=== PATIENT | female | born 1990 | race Caucasian/White ===

== ENCOUNTER 2020-01-09 20:32 | Outpatient (REF) | payer MEDICAID, SELFPAY ==
[2020-01-09 20:04] LABS: Abs Immature Grans 0.03 k/cumm (0.0-0.09); Absolute Basophil Count 0.03 k/cumm (0.0-0.2); Absolute Eosinophil Count 0.14 k/cumm (0.0-0.7); Absolute Lymphocyte Count 2.73 k/cumm (1.2-3.4); Absolute Monocyte Count 0.52 k/cumm (0.11-0.7); Absolute Neutrophil Count 5.48 k/cumm (1.2-6.7); Basophils % 0.3; Eosinophils % 1.6; HCT 42.5 % (36.0-46.0); HGB 13.2 g/dL (12.0-15.5); Immature Grans % 0.3 %; Lymphocytes % 30.6; Mean Corp. HGB Concentration 31.1 g/dL (32.0-36.0); Mean Corpuscular Hemoglobin 26.6 pg (27.0-33.0); Mean Corpuscular Volume 85.5 fL (80-95); Mean Platelet Volume 12.3 fL (8.0-11.0); Monocytes % 5.8; Neutrophils % 61.4; Platelet Count 265 x1000/uL (130-400); RBC 4.97 m/cumm (4.00-5.20); RBC Distribution Width 16.6 % (11.7-14.6); White Blood Cell Count 8.93 k/cumm (4.4-10.8)
[2020-01-09 20:16] LABS: ALT 67 U/L (14-59); AST 17 U/L (15-37); Albumin 3.8 g/dL (3.4-5.0); Alkaline Phosphatase 94 U/L (46-116); Anion Gap 9.6 mmol/L (3-11); BUN 17 mg/dL (7-18); Bilirubin, Total 0.3 mg/dL (0.2-1.0); CO2 24.4 mmol/L (21.0-32.0); CREATININE 0.95 mg/dL (0.55-1.02); Calcium 9.2 mg/dL (8.5-10.1); Chloride 105 mmol/L (98-107); Glucose 95 mg/dL (74-106); Lipase 223 U/L (73-393); Potassium 4.4 mmol/L (3.5-5.1); Sodium 139 mmol/L (136-145); Total Protein 7.4 g/dL (6.4-8.2)
[2020-01-09 20:20] LABS: Hemoglobin A1C 5.4 % (3.8-5.6)
== END 2020-01-09 20:52 ==
LOC: NCHCN 20:32
PROVIDERS: PCP Nurse Practitioner Family; Visit Provider Registered Nurse
DX: I10 Essential (primary) hypertension (principal); R10.9 Unspecified abdominal pain
CPT/HCPCS: 80053; 83690; 83036; 85025

== ENCOUNTER 2020-04-01 14:01 | Outpatient (REF) | payer MEDICAID, SELFPAY ==
[2020-04-01 20:19] LABS: TSH (W/Ref FT4) 2.79 uIU/mL (0.36-3.74)
== END 2020-04-01 14:21 ==
LOC: NCHCN 14:01
PROVIDERS: PCP Nurse Practitioner Family; Visit Provider Registered Nurse
DX: E03.9 Hypothyroidism, unspecified (principal)
CPT/HCPCS: 84443

== ENCOUNTER 2020-05-27 14:56 | Outpatient (REF) | payer MEDICAID, SELFPAY ==
[2020-05-27 22:12] LABS: Calculated LDL 116 mg/dL (<100); Cholesterol 194 mg/dL (<200); HDL Cholesterol 37 mg/dL (40-60); TSH 4.11 uIU/mL (0.36-3.74); Triglyceride 209 mg/dL (<150)
== END 2020-05-27 15:16 ==
LOC: NCHCN 14:56
PROVIDERS: PCP Nurse Practitioner Family; Visit Provider Registered Nurse
DX: E03.9 Hypothyroidism, unspecified (principal); Z68.42 Body mass index [BMI] 45.0-49.9, adult
CPT/HCPCS: 80061; 84443

== ENCOUNTER 2020-10-23 15:15 | Outpatient (REF) | payer MEDICAID, SELFPAY | END 2020-10-23 15:16 | disposition home or self-care (01) | LOC: NCHCN 15:15 | PROVIDERS: PCP Nurse Practitioner Family; Visit Provider Registered Nurse | DX: R82.998 Other abnormal findings in urine (principal); M54.5 Low back pain | CPT/HCPCS: 87086 ==

== ENCOUNTER 2021-01-01 16:02 | Outpatient (REF) | payer MEDICAID, SELFPAY ==
[2021-01-01 14:16] LABS: Anion Gap 15.6 mmol/L (3-11); BUN 11 mg/dL (7-18); CO2 19.4 mmol/L (21.0-32.0); CREATININE 0.7 mg/dL (0.55-1.02); Calcium 9.2 mg/dL (8.5-10.1); Chloride 107 mmol/L (98-107); Glucose 143 mg/dL (74-106); Potassium 4.5 mmol/L (3.5-5.1); Sodium 142 mmol/L (136-145)
== END 2021-01-01 16:03 | disposition home or self-care (01) ==
LOC: NCHCN 16:02
PROVIDERS: PCP Nurse Practitioner Family; Visit Provider Registered Nurse
DX: I10 Essential (primary) hypertension (principal)
CPT/HCPCS: 80048

== ENCOUNTER 2021-03-23 12:22 | Outpatient (REF) | payer MEDICAID, SELFPAY ==
[2021-03-23 21:13] LABS: TSH 0.56 uIU/mL (0.36-3.74)
== END 2021-03-23 12:23 | disposition home or self-care (01) ==
LOC: NCHCN 12:22
PROVIDERS: PCP Nurse Practitioner Family; Visit Provider Registered Nurse
DX: E03.9 Hypothyroidism, unspecified (principal)
CPT/HCPCS: 84443

== ENCOUNTER 2021-11-12 14:52 | Outpatient (REF) | payer MEDICAID, SELFPAY ==
--- NOTE | 2021-11-12 14:30 | PAPFT_PTH ---
PATIENT: Polina Workman LOC: [facility] U#:[id number] AGE/SX: 31/F ROOM: RE11/12/[address]: Janene Singer : 1990 BED: DIS: 11/12/2021 SPEC #: [id number] RECD: 11/15/21 12:38 STATUS: FERNANDO REFifi #: [id number] KALEN: 11/12/21 14:[address]: Janene Singer [facility] Cytology RECD BY: Vaishnavi Tian ENTERED: 11/15/21 12:38 SP TYPE: PAPFT NELI DR: Rosanna Ashby Tissues: 1 - CX/ENDOCX FOR PAP SMEARS Procedures: PAP THIN PREP/[facility] Screening HPV DNA PROBE Comments: [id number]
--- OUTSIDE RECORDS SUMMARY | 2021-11-12 14:57 | XMS_ITS | CCD ---
:1990 Author Care Team Providers Name Role Phone MD SVETLANA Attending Physician Unavailable MD DEMOND Er Physician 1 Unavailable Vital Signs Unknown or Not Available. Allergies Allergy Code Allergy Type Reaction Status PENICILLINS (CLASS) 0 Drug allergy Anaphylaxis Active PERCOCET 93984 Drug allergy NAUSEA/VOMITING Active Procedures Unknown or Not Available. History of Immunizations Unknown or Not Available. Problems Unknown or Not Available. Results Unknown or Not Available. Active Medications Unknown or Not Available. Medications Administered During Visit Unknown or Not Available. Encounters Encounter Diagnosis Diagnosis Code Start Date Acute nasopharyngitis [common cold] J00 02/05 Social History Smoking Status Code Start Date End Date Never smoker [id number] Patient Decision Aids Unknown or Not Available. Discharge Instructions You were admitted to [facility] on 02/27/2021 07:49 with a principal diagnosis of Acute nasopharyngitis [comm on cold] You were discharged from [facility] on 02/27/2021 08:57 Should you have any questions prior to d ischarge, please contact a member of your healthcare team. If you have left the ho spital and have any questions, please contact your primary care physician. Chief Complaint and Reason For Visit Chief Complaint Date of Onset RUNNY NOSE/ NOT FEELING GOOD Function Status Unknown or Not Available. Plan of Care Unknown or Not Available. Referral/Transition of Care Unknown or Not Available.
--- OUTSIDE RECORDS SUMMARY | 2021-11-12 14:57 | XMS_ITS | CCD ---
:1990 Author Care Team Providers Name Role Phone LOLITA BALLESTEROS Attending Physician Unavailable Vital Signs Unknown or Not Available. Allergies Allergy Code Allergy Type Reaction Status PENICILLINS (CLASS) 0 Drug allergy Anaphylaxis Active PERCOCET 54788 Drug allergy NAUSEA/VOMITING Active Procedures Unknown or Not Available. History of Immunizations Unknown or Not Available. Problems Unknown or Not Available. Results HCG QUANTITATIVE WHOLE MOLECULE - [facility] Date/Time: 01/19/2021 09:14 Test Name Code Test Result Test Units Test Ref Range HCG, total+Beta 35858-5 <1 N/A subs Active Medications Unknown or Not Available. Medications Administered During Visit Unknown or Not Available. Encounters Encounter Diagnosis Diagnosis Code Start Date Amenorrhea, unspecified N912 01/19/2021 Social History Smoking Status Code Start Date End Date Never smoker [id number] Patient Decision Aids Unknown or Not Available. Discharge Instructions You were admitted to [facility] 01 on 01/19/2021 08:06 with a principal diagnosis of Amenorrhea, unspecified You had the following tests done: HCG QUANTITATIVE WHOLE MOLECULE You were discharged from [facility] 01 on 01/19/2021 08:06 Should you have any questions prior to d ischarge, please contact a member of your healthcare team. If you have left the spital and have any questions, please contact your primary care physician. Chief Complaint and Reason For Visit Unknown or Not Available. Function Status Unknown or Not Available. Plan of Care Unknown or Not Available. Referral/Transition of Care Unknown or Not Available.
== END 2021-11-12 14:53 | disposition home or self-care (01) ==
LOC: NCHCN 14:52
PROVIDERS: PCP Nurse Practitioner Family; Visit Provider Registered Nurse
DX: Z12.4 Encounter for screening for malignant neoplasm of cervix (principal); Z11.51 Encounter for screening for human papillomavirus (HPV)
CPT/HCPCS: 88142; 87624

== ENCOUNTER 2021-12-14 19:09 | Outpatient (REF) | payer MEDICAID, SELFPAY ==
[2021-12-14 21:23] LABS: HCT 41.7 % (36.0-46.0); HGB 12.8 g/dL (11.2-15.7); MCH 26.7 pg (27.0-33.0); MCHC 30.7 % (32.0-36.0); MCV 87 fL (80-95); MPV 12.7 fL (8.0-11.0); Platelet Count 246 10^3/uL (130-400); RDW 14.9 % (11.7-14.6); RDW-SD 47.8 fL; WBC 8.19 10^3/uL (4.4-10.8)
[2021-12-14 21:33] LABS: Hemoglobin A1C 7.1 % (<5.7)
[2021-12-14 21:45] LABS: ALT 161 U/L (14-59); AST 132 U/L (15-37); Albumin 3.6 g/dL (3.4-5.0); Alkaline Phosphatase 96 U/L (46-116); Anion Gap 8.2 mmol/L (3-11); BUN 8 mg/dL (7-18); Bilirubin, Total 0.2 mg/dL (0.2-1.0); CO2 27.8 mmol/L (21.0-32.0); CREATININE 0.7 mg/dL (0.55-1.02); Calculated LDL 86 mg/dL (<100); Chloride 107 mmol/L (98-107); Cholesterol 162 mg/dL (<200); Glucose 145 mg/dL (74-106); HDL Cholesterol 33 mg/dL (40-60); Potassium 4.4 mmol/L (3.5-5.1); Sodium 143 mmol/L (136-145); TSH 0.93 uIU/mL (0.36-3.74); Total Protein 7.6 g/dL (6.4-8.2); Triglyceride 215 mg/dL (<150)
== END 2021-12-14 19:10 | disposition home or self-care (01) ==
LOC: NCHCN 19:09
PROVIDERS: PCP Nurse Practitioner Family; Visit Provider Registered Nurse
DX: E03.9 Hypothyroidism, unspecified (principal); N93.8 Other specified abnormal uterine and vaginal bleeding; R10.9 Unspecified abdominal pain; Z13.220 Encounter for screening for lipoid disorders; I10 Essential (primary) hypertension; Z13.1 Encounter for screening for diabetes mellitus
CPT/HCPCS: 80053; 80061; 85027; 83036; 84443

== ENCOUNTER 2021-12-31 17:52 | Outpatient (REF) | payer MEDICAID, SELFPAY ==
[2021-12-31 20:34] LABS: COMMENT (LAB VIEW ONLY) 187.49 mg/dL; Microalb ug/mg Crea 8.6 ug/mg Cr
== END 2021-12-31 17:53 | disposition home or self-care (01) ==
LOC: NCHCN 17:52
PROVIDERS: PCP Nurse Practitioner Family; Visit Provider Registered Nurse
DX: E11.9 Type 2 diabetes mellitus without complications (principal)
CPT/HCPCS: 82043; 82570

== ENCOUNTER 2022-07-13 15:31 | Outpatient (REF) | payer MEDICAID, SELFPAY ==
[2022-07-13 21:28] LABS: ALT 281 U/L (14-59); AST 297 U/L (15-37); Albumin 3.9 g/dL (3.4-5.0); Alkaline Phosphatase 124 U/L (46-116); Anion Gap 10.3 mmol/L (3-11); BUN 9 mg/dL (7-18); Bilirubin, Total 0.4 mg/dL (0.2-1.0); CO2 26.7 mmol/L (21.0-32.0); CREATININE 0.8 mg/dL (0.55-1.02); Calcium 9.7 mg/dL (8.5-10.1); Chloride 100 mmol/L (98-107); Estimated GFR 100.96 (mL/min/1.73m2); Glucose 246 mg/dL (74-106); Potassium 4.5 mmol/L (3.5-5.1); Sodium 137 mmol/L (136-145); Total Protein 9.1 g/dL (6.4-8.2)
== END 2022-07-13 15:32 | disposition home or self-care (01) ==
LOC: NCHCN 15:31
PROVIDERS: PCP Nurse Practitioner Family; Visit Provider Registered Nurse
DX: I10 Essential (primary) hypertension (principal); Z87.19 Personal history of other diseases of the digestive system
CPT/HCPCS: 80053

== ENCOUNTER 2023-03-29 18:44 | Outpatient (REF) | payer MEDICAID, SELFPAY ==
[2023-03-29 21:21] LABS: Hemoglobin A1C 7.4 % (<5.7)
[2023-03-29 21:24] LABS: COMMENT (LAB VIEW ONLY) 163.47 mg/dL; Microalb ug/mg Crea 19.3 ug/mg Cr
[2023-03-29 21:30] LABS: Anion Gap 9.9 mmol/L (3-11); BUN 11 mg/dL (7-18); CO2 25.1 mmol/L (21.0-32.0); CREATININE 0.8 mg/dL (0.55-1.02); Calcium 9.5 mg/dL (8.5-10.1); Calculated LDL 133 mg/dL (<100); Chloride 100 mmol/L (98-107); Cholesterol 230 mg/dL (<200); Estimated GFR 100.33 (mL/min/1.73m2); Glucose 189 mg/dL (74-106); HDL Cholesterol 38 mg/dL (40-60); Potassium 4.3 mmol/L (3.5-5.1); Sodium 135 mmol/L (136-145); TSH 3.23 uIU/mL (0.36-3.74); Triglyceride 296 mg/dL (<150)
== END 2023-03-29 18:45 | disposition home or self-care (01) ==
LOC: NCHCN 18:44
PROVIDERS: PCP Nurse Practitioner Family; Visit Provider Family Medicine
DX: E11.9 Type 2 diabetes mellitus without complications (principal); E03.9 Hypothyroidism, unspecified; I10 Essential (primary) hypertension; R79.89 Other specified abnormal findings of blood chemistry
CPT/HCPCS: 80048; 80061; 82043; 82570; 83036; 84443

== ENCOUNTER 2023-12-07 18:33 | Outpatient (REF) | payer MEDICAID, SELFPAY ==
[2023-12-07 15:00] LABS: Calculated LDL 62 mg/dL (<100); Cholesterol 120 mg/dL (<200); HDL Cholesterol 31 mg/dL (40-60); Triglyceride 138 mg/dL (<150)
[2023-12-07 15:17] LABS: Hemoglobin A1C 6.2 % (<5.7)
== END 2023-12-07 18:34 | disposition home or self-care (01) ==
LOC: NCHCN 18:33
PROVIDERS: PCP Nurse Practitioner Family; Visit Provider Family Medicine
DX: E11.9 Type 2 diabetes mellitus without complications (principal); E78.5 Hyperlipidemia, unspecified
CPT/HCPCS: 80061; 83036

== ENCOUNTER 2024-02-19 15:25 | Outpatient (REF) | payer MEDICAID, SELFPAY ==
[2024-02-19 21:34] LABS: Abs Immature Grans 0.05 10^3/uL (0.0-0.06); Absolute Lymphocyte Count 3.02 10^3/uL (1.2-3.4); Absolute Monocyte Count 0.41 10^3/uL (0.1-0.8); Basophils % 0.8 %; Eosinophils % 6.6 %; HCT 42.7 % (36.0-46.0); HGB 13.3 g/dL (11.2-15.7); Immature Grans % 0.4 %; Lymphocytes % 24.9 %; MCH 23.8 pg (27.0-33.0); MCHC 31.1 % (32.0-36.0); MCV 76 fL (80-95); Monocytes % 3.4 %; Neutrophils % 63.9 %; Platelet Count 300 10^3/uL (130-400); RBC 5.59 10^6/uL (3.93-5.22); RDW 20.4 % (11.7-14.6); RDW-SD 54.8 fL; WBC 12.11 10^3/uL (4.4-10.8)
[2024-02-19 21:41] LABS: Absolute Neutrophil Count 7.74 10^3/uL (1.2-6.7)
[2024-02-19 21:56] LABS: Anisocytosis 1+; Diff Comment RBC Morph Reviewed
[2024-02-19 22:08] LABS: ALT 20 U/L (14-59); AST 14 U/L (15-37); Albumin 3.8 g/dL (3.4-5.0); Alkaline Phosphatase 105 U/L (46-116); Anion Gap 11.6 mmol/L (3-11); BUN 7 mg/dL (7-18); Bilirubin, Total 0.39 mg/dL (0.2-1.0); CO2 23.4 mmol/L (21.0-32.0); CREATININE 0.9 mg/dL (0.55-1.02); Calcium 9.8 mg/dL (8.5-10.1); Chloride 108 mmol/L (98-107); Estimated GFR 86.57 (mL/min/1.73m2); Glucose 114 mg/dL (74-106); Lipase 43 U/L (16-77); Potassium 4.6 mmol/L (3.5-5.1); Sodium 143 mmol/L (136-145); Total Protein 8.6 g/dL (6.4-8.2)
[2024-02-20 19:17] LABS: C Diff PCR Negative (Negative)
[2024-02-21 22:49] LABS: Campylobacter PCR Negative (Negative); Salmonella PCR Negative (Negative); Shiga Toxin PCR Negative (Negative); Shigella/Enteroinvasive Ecoli Negative (Negative)
== END 2024-02-19 15:26 | disposition home or self-care (01) ==
LOC: NCHCN 15:25
PROVIDERS: PCP Nurse Practitioner Family; Visit Provider Family Medicine
DX: R19.7 Diarrhea, unspecified (principal)
CPT/HCPCS: 80053; 83690; 87493; 87505; 85025; 87177

== ENCOUNTER 2024-04-29 19:49 | Outpatient (REF) | payer MEDICAID, SELFPAY ==
[2024-04-29 22:21] LABS: Iron 48 ug/dL (50-170); Total Iron Binding Capacity 488 ug/dL (250-450); Transferrin Sat 10 % (15-50)
[2024-04-29 22:27] LABS: Anion Gap 8.6 mmol/L (3-11); BUN 10 mg/dL (7-18); CO2 25.4 mmol/L (21.0-32.0); CREATININE 0.8 mg/dL (0.55-1.02); Calcium 9.6 mg/dL (8.5-10.1); Chloride 106 mmol/L (98-107); Estimated GFR 99.71 (mL/min/1.73m2); Glucose 133 mg/dL (74-106); Potassium 4.8 mmol/L (3.5-5.1); Sodium 140 mmol/L (136-145); TSH 3.27 uIU/Ml (0.36-3.74)
[2024-04-29 22:29] LABS: COMMENT (LAB VIEW ONLY) 116.91 mg/dL
[2024-04-29 22:30] LABS: Microalb ug/mg Crea 232.1 ug/mg Cr
[2024-04-29 22:43] LABS: Hemoglobin A1C 6.4 % (<5.7)
== END 2024-04-29 19:50 | disposition home or self-care (01) ==
LOC: NCHCN 19:49
PROVIDERS: PCP Nurse Practitioner Family; Visit Provider Family Medicine
DX: E11.9 Type 2 diabetes mellitus without complications (principal); E78.5 Hyperlipidemia, unspecified
CPT/HCPCS: 80048; 82043; 82570; 83036; 83540; 83550; 84443

== ENCOUNTER 2024-06-21 16:02 | Outpatient (REF) | payer MEDICAID, SELFPAY ==
[2024-06-21 14:27] LABS: Iron 69 ug/dL (50-170); Total Iron Binding Capacity 402 ug/dL (250-450); Transferrin Sat 17 % (15-50)
== END 2024-06-21 16:03 | disposition home or self-care (01) ==
LOC: NCHCN 16:02
PROVIDERS: PCP Nurse Practitioner Family; Visit Provider Family Medicine
DX: E11.9 Type 2 diabetes mellitus without complications (principal); I10 Essential (primary) hypertension; E03.9 Hypothyroidism, unspecified
CPT/HCPCS: 83540; 83550

== ENCOUNTER 2024-09-16 13:18 | Outpatient (REF) | payer MEDICAID, SELFPAY ==
[2024-09-16 14:54] LABS: Abs Immature Grans 0.05 10^3/uL (0.0-0.06); Absolute Basophil Count 0.09 10^3/uL (0.0-0.2); Absolute Eosinophil Count 0.36 10^3/uL (0.0-0.7); Absolute Lymphocyte Count 3.33 10^3/uL (1.2-3.4); Basophils % 0.8 %; Eosinophils % 3.1 %; HGB 14.9 g/dL (11.2-15.7); Immature Grans % 0.4 %; Lymphocytes % 28.5 %; MCH 27.4 pg (27.0-33.0); MCHC 33.1 % (32.0-36.0); MCV 83 fL (80-95); MPV 12.5 fL (8.0-11.0); Monocytes % 3.9 %; Neutrophils % 63.3 %; Platelet Count 270 10^3/uL (130-400); RBC 5.43 10^6/uL (3.93-5.22); RDW 15.5 % (11.7-14.6); RDW-SD 46.4 fL; WBC 11.68 10^3/uL (4.4-10.8)
[2024-09-16 14:59] LABS: Absolute Monocyte Count 0.46 10^3/uL (0.1-0.8); Absolute Neutrophil Count 7.39 10^3/uL (1.2-6.7); ESR 48 mm/hr (0-20)
[2024-09-16 15:13] LABS: ALT 24 U/L (14-59); AST 10 U/L (15-37); Albumin 3.7 g/dL (3.4-5.0); Alkaline Phosphatase 116 U/L (46-116); Anion Gap 7.9 mmol/L (3-11); BUN 13 mg/dL (7-18); Bilirubin, Total 0.26 mg/dL (0.2-1.0); C-Reactive Protein < 0.50 mg/dL (<or=0.5); CO2 24.1 mmol/L (21.0-32.0); CREATININE 0.8 mg/dL (0.55-1.02); Calcium 9.7 mg/dL (8.5-10.1); Chloride 107 mmol/L (98-107); Estimated GFR 99.71 (mL/min/1.73m2); Glucose 181 mg/dL (74-106); Potassium 4.6 mmol/L (3.5-5.1); Sodium 139 mmol/L (136-145); TSH 1.31 uIU/mL (0.36-3.74)
== END 2024-09-16 13:19 | disposition home or self-care (01) ==
LOC: NCHCN 13:18
PROVIDERS: PCP Nurse Practitioner Family; Visit Provider Family Medicine
DX: K52.9 Noninfective gastroenteritis and colitis, unspecified (principal); R11.2 Nausea with vomiting, unspecified; E03.9 Hypothyroidism, unspecified
CPT/HCPCS: 80053; 85652; 84443; 85025; 86140

== ENCOUNTER 2025-06-30 11:16 | Outpatient (REF) | payer MEDICAID, SELFPAY | END 2025-06-30 11:17 | disposition home or self-care (01) | LOC: NCHCN 11:16 | PROVIDERS: PCP Nurse Practitioner Family; Visit Provider Family Medicine | DX: E11.29 Type 2 diabetes mellitus with other diabetic kidney complication (principal) | CPT/HCPCS: 82043; 82570 ==

== ENCOUNTER 2025-07-16 12:02 | Outpatient (REF) | payer MEDICAID, SELFPAY ==
[2025-07-16 18:18] LABS: RBC 0-2 HPF (0-2)
== END 2025-07-16 12:03 | disposition home or self-care (01) ==
LOC: NCHCN 12:02
PROVIDERS: PCP Nurse Practitioner Family; Visit Provider Nurse Practitioner Family
DX: R30.9 Painful micturition, unspecified (principal)
CPT/HCPCS: 81015